=== PATIENT | male | born 1990 | race Caucasian/White ===

== ENCOUNTER 2016-12-10 15:40 | Emergency (ER) | payer OTHER ==
[~2016-12-10] VITALS: Ht 182.9 cm; Wt 90.7 kg
[2016-12-10 17:34] LABS: ABSOLUTE NEUTROPHILS 5.2 thou/uL (1.4-8.2); BASOPHILS 0.6 % (0.0-2.0); EOSINOPHILS 0.9 % (0.0-3.0); HEMATOCRIT 42.1 % (42.0-52.0); HEMOGLOBIN 14.5 gm/dL (14.0-18.0); LYMPHOCYTES 28.3 % (24.0-44.0); MCH 30.7 pg (26.0-34.0); MCHC 34.5 g/dL (28.0-37.0); MCV 88.9 fL (80.0-100.0); MONOCYTES 6.3 % (1.0-8.0); PLATELET COUNT 249 thou/uL (150-400); POLYS 63.9 % (36.0-66.0); RBC 4.73 mil/uL (4.50-6.00); RDW 13.3 % (10.5-14.5); WBC 8.2 thou/uL (4.0-11.0)
[2016-12-10 17:36] LABS: URINE BILIRUBIN NEGATIVE (Negative); URINE BLOOD NEGATIVE (Negative); URINE COLOR YELLOW; URINE GLUCOSE-RANDOM* NEGATIVE (Negative); URINE KETONES NEGATIVE (Negative); URINE NITRITE NEGATIVE (Negative); URINE PROTEIN (DIPSTICK) NEGATIVE (Negative); URINE UROBILINOGEN 0.2 E.U./dl (0.2-1.0)
[2016-12-10 17:39] LABS: MANUAL DIFF NO
[2016-12-10 17:46] LABS: CALCIUM 9.6 mg/dL (8.5-10.1); CREATININE 1.2 mg/dL (0.7-1.3); POTASSIUM 3.9 mmol/L (3.5-5.1)
[2016-12-10 17:53] LABS: ALBUMIN 4.8 g/dL (3.4-5.0); TOTAL BILIRUBIN 0.6 mg/dL (<0.1-1.0); TOTAL PROTEIN 7.9 g/dL (6.4-8.2)
[2016-12-10 18:53] VITALS: BP 134/75
== END 2016-12-10 19:10 | disposition home or self-care (01) ==
LOC: ER 15:40
PROVIDERS: Physician Assistant
DX: R51 Headache (principal); M62.830 Muscle spasm of back

== ENCOUNTER 2017-01-05 14:56 | Emergency (ER) | payer OTHER ==
[~2017-01-05] VITALS: Ht 188 cm; Wt 97.5 kg
[2017-01-05 14:58] VITALS: BP 152/90
[2017-01-05 15:27] LABS: BASOPHILS 0.6 % (0.0-2.0); EOSINOPHILS 0.2 % (0.0-3.0); HEMATOCRIT 42.5 % (42.0-52.0); HEMOGLOBIN 14.8 gm/dL (14.0-18.0); LYMPHOCYTES 21.7 % (24.0-44.0); MCH 31.1 pg (26.0-34.0); MCHC 34.7 g/dL (28.0-37.0); MCV 89.4 fL (80.0-100.0); MONOCYTES 6.7 % (1.0-8.0); PLATELET COUNT 254 thou/uL (150-400); POLYS 70.8 % (36.0-66.0); RBC 4.75 mil/uL (4.50-6.00); RDW 12.9 % (10.5-14.5); WBC 9.9 thou/uL (4.0-11.0)
[2017-01-05 15:32] LABS: MANUAL DIFF NO
[2017-01-05 15:34] LABS: ABG SAMPLE TYPE ARTERIAL; BE(vivo) 1.9 mmol/L (-2 to +3); HCO3 24.5 mmol/L (22.0-26.0); LACTATE 1.52 mmol/L (0.5-2.0); O2(CT) 21.4 mL/dL (15.0-23.0); O2Hb 97.2 % (92.0-98.0); PCO2 32.9 mmHg (35.0-45.0); sO2 97.9 % (92.0-98.0); tCO2 25.5 mmol/L (24.0-30.0)
[2017-01-05 15:35] LABS: STICK SITE R.RADIAL
[2017-01-05 15:36] LABS: CALCIUM 9.3 mg/dL (8.5-10.1); CREATININE 1.3 mg/dL (0.7-1.3); POTASSIUM 3.8 mmol/L (3.5-5.1)
== END 2017-01-05 18:12 | disposition home or self-care (01) ==
LOC: ER 14:56
PROVIDERS: Nurse Practitioner
DX: T50.995A Adverse effect of other drugs, medicaments and biological substances, initial encounter (principal); Y92.89 Other specified places as the place of occurrence of the external cause